=== PATIENT | male | born 1965 | race African-American/Black ===

== ENCOUNTER 2017-07-16 13:17 | Emergency (ER) | payer SELFPAY ==
[~2017-07-16] VITALS: Ht 185.4 cm; Wt 104.3 kg
[~2017-07-16 13:17] MED LIST: AMLO10TA2 PO; HYDR25TA4 PO; LISI-607 PO
--- NOTE | 2017-07-16 13:40 | NUR ---
C/O HIGH BLOOD SUGAR, HEADACHE. TAKES [facility] 24 U HS. BS AT HOME ~ 300+. NAD NOTED. PT AAO X4, AMB WITH STEADY GAIT. VSS. RR EVEN AND UNLABORED. DR SORIA AT BEDSIDE FOR EVAL.
[2017-07-16] MEDS ORDERED: IV NS 0.9% 1,000 ML BAG IV ONE (14:30)
[2017-07-16 14:40] LABS: BASOPHILS # (AUTO) 0.1 /CMM (0.0-0.2); BASOPHILS % (AUTO) 1.9 % (0.0-2.0); EOSINOPHILS % (AUTO) 0.5 % (0.0-6.0); HEMATOCRIT 47 % (39-51); HEMOGLOBIN 15.8 g/dL (13.5-17.5); LYMPHOCYTES # (AUTO) 1.6 /CMM (0.8-4.8); LYMPHOCYTES % (AUTO) 36.4 % (20.0-44.0); MEAN CORPUSCULAR HEMOGLOBIN 30 PG (26.0-33.0); MEAN CORPUSCULAR HGB CONC 34 g/dl (31.0-36.0); MEAN CORPUSCULAR VOLUME 89 fL (80-96); MONOCYTES # (AUTO) 0.4 /CMM (0.1-1.30); MONOCYTES % (AUTO) 9.2 % (2.0-12.0); NEUTROPHILS # (AUTO) 2.4 /CMM (1.8-8.9); PLATELET COUNT (AUTO) 143 /CMM (150-450); RDW COEFFICIENT OF VARIATION 12.2 (11.5-15.0); RED BLOOD CELL COUNT(AUTO) 5.21 MIL/uL (4.5-6.0); WHITE BLOOD COUNT (AUTO) 4.5 K/uL (4.3-11.0)
--- NOTE | 2017-07-16 14:42 | NUR ---
BS 290 AWARE
[2017-07-16 14:51] LABS: CALCIUM, SERUM 9.2 mg/dL (8.5-10.1)
[2017-07-16] MEDS ORDERED: METOCLOPRAMIDE HCL 10 MG/2 ML VIAL IV ONE (15:00)
[2017-07-16] MEDS ORDERED: IBUPROFEN 400 MG TABLET PO ONE (15:00)
[2017-07-16] MEDS ORDERED: ACETAMINOPHEN ES 500 MG TABLET PO ONE (15:00)
[2017-07-16 15:05] LABS: ALBUMIN 4.1 g/dL (3.4-5.0); BILIRUBIN,DIRECT 0.2 mg/dL (0.0-0.2); BILIRUBIN,TOTAL 0.9 mg/dL (0.2-1.0)
[2017-07-16] MEDS ORDERED: METOCLOPRAMIDE HCL 10 MG/2 ML VIAL ONE (15:18)
[2017-07-16] MEDS ORDERED: ACETAMINOPHEN ES 500 MG TABLET ONE ×2 (15:18)
[2017-07-16] MEDS ORDERED: IBUPROFEN 400 MG TABLET ONE (15:18)
[2017-07-16] MEDS ORDERED: INSULIN REGULAR, HUMAN 100 UNIT/ML 10 ML VIAL ONE (16:06)
[2017-07-16] MEDS ORDERED: INSULIN REGULAR, HUMAN 100 UNIT/ML 10 ML VIAL SQ ONE (16:30)
[2017-07-16 17:46] VITALS: BP 140/83
== END 2017-07-16 17:46 | disposition home or self-care (01) ==
LOC: ER 13:20
DX: E11.649 Type 2 diabetes mellitus with hypoglycemia without coma (principal); I10 Essential (primary) hypertension; Z79.4 Long term (current) use of insulin; R51 Headache
CPT/HCPCS: 36415; 80048; 80076; 82962; 83690; 85025; 96361; 96372; 96374; 99284; A4606; J1815; J2765; J7030; Z7610